=== PATIENT | male | born 1970 | race Caucasian/White ===

== ENCOUNTER → 2020-04-28 09:53 | Outpatient (CLI) | payer MEDICARE, MEDICAID ==
--- NOTE | 2020-04-30 08:18 | EC ---
PATIENT:JANINE MONTES DE OCA DATE OF SERVICE: 04/28/20 SEX: M MEDICAL RECORD: [id number] DATE OF : 74 LOCATION:[facility] AGE OF PATIENT: 50 ADMISSION DATE: 04/28/20 REFERRING PHYSICIAN: INTERPRETING PHYSICIAN: JAZMIN COTTO MD ECHOCARDIOGRAM REPORT ECHO CHARGES 4 ECHO COMPLETE Date: 04/28/20 CLINICAL DIAGNOSIS: HEART MURMUR/HTN/PALPITATIONS DYSPNEA ON EXERTION ECHOCARDIOGRAPHIC MEASUREMENTS (adult normal given) AC root (d.<3.7cm) 3.5 cm LV Septum d (<1.2 cm> 1.5 cm Valve Excursion 1.4 cm LV Septum (systole) 1.7 cm Left Atria (s.<4.0cm> 2.9 cm LVPW d(<1.2cm) 1.6 cm RV (d.<2.3cm) 3.3 cm LVPW (sytole) 1.8 cm LV diastole(<5.6CM) 5.3 cm MV E-F(>70mm/sec) cm LV systole 3.0 cm LVOT Diameter 1.5 cm MV exc.(>10mm) 1.6 cm Est.ejection fraction (50-75%) % DOPPLER: LVIT cm/sec A 75.0 cm/sec E 90.0 cm/sec LA cm/sec RVSP 26 mmHg LVOT 97 cm/sec AOP1/2T m/s Asc. Ao 126 cm/sec RVOT 73 cm/sec RA cm/sec PA 91 cm/sec AV Gradient Peak 6.39 mmHg AV Mean 3.72 mmHg AV Area 1.5 cm MV Gradient Peak 3.47 mmHg MV Mean 1.61 mmHg MV Area cm COMMENTS: Russian History Professor: 2 KAYLYN MITCHELL Slasher Tender: 3 Dr. Valenzuela TAPE# PACS Pericardial Effusion N DATE OF SERVICE: Adequate 2D echo, color flow, spectral Doppler, and M-Mode. LVH is present. LV internal dimension is normal. Wall motion is normal. EF is greater than or equal to 55%. Aortic valve is tricuspid. No evidence of stenosis by Doppler interrogation. Left atrium is normal at 2.9 cm. Mitral valve shows no prolapse. Trace MR. Right-sided chambers are grossly normal. Trace TR. TRANSINT:[id number] Voice Confirmation ID: [id number] DOCUMENT ID: [id number] ECHOCARDIOGRAM REPORT [id number] JANINE MONTES DE OCA,JAZMIN Charlton MD at 0818 CC: [id number] DICTATION DATE: 04/29/20 125 DIRECTOR FRANCHISE SALES: 04/29/202032 DEP CLI 04/28/20 [place] [id number] [place] [id number]
== END | disposition home or self-care (01) ==
LOC: D.HCCECHO 09:53
PROVIDERS: ATTEND Internal Medicine Interventional Cardiology
DX: R01.1 Cardiac murmur, unspecified (principal)